=== PATIENT | female | born 1985 | race Caucasian/White ===

== ENCOUNTER 2017-09-19 17:19 | Inpatient (IN) | payer BC ==
[~2017-09-19] VITALS: Ht 157.5 cm; Wt 66.8 kg
[~2017-09-19 17:19] MED LIST: ALDACTONE 25MG25 M1 PO; COLACE 100100 MG/CAP PO; ERY-TAB250 M1 PO; MOTRIN 600600 MG/TAB PO; NORCO 325 MG-51 TAB PO; ORTHO TRI-CYCLE1 TA2 PO; PERCOCET 325 MG1 TA2 PO; PRENATAL1 TA7 PO
[2017-10-31] VITALS (27 sets, daily range): BP systolic 99–127; BP diastolic 52–83; PULSE 56–87; TEMP 97.6–98.4
[2017-10-31 02:22] LABS: BASO % 0.4 % (0.0-2.0); EOS # 0.1 (0.0-0.7); EOS % 0.9 % (0-4.0); GRAN # 6.4 (1.4-6.5); GRAN % 68.3 % (42.2-75.2); LYMPH # 2.1 (1.2-3.4); LYMPH % 22.6 % (20.0-51.0); MEAN CELL VOLUME 86 fl (80.0-100.0); MEAN CORPUSCULAR HEMOGLOBIN 29 pg (27.0-31.0); MEAN CORPUSCULAR HGB CONC 34 g/dl (33.0-37.0); MEAN PLATELET VOLUME 11.5 fl (7.4-10.4); MONO # 0.7 (0.1-0.6); MONO % 7.4 % (1.7-9.3); PLATELET COUNT 187 K/mm3 (130-400); RED BLOOD COUNT 4.11 M/mm3 (4.10-5.30); REDCELL DISTRIBUTION WIDTH-CV 13.6 % (11.5-14.5)
[2017-10-31 02:25] LABS: HEMATOCRIT 35.5 % (37.0-47.0)
[2017-10-31] MEDS ORDERED: PERCOCET 325 MG1 TA2 PO (18:39)
[2017-10-31] MEDS ORDERED: MOTRIN 800800 MG/TAB PO (18:39)
[2017-11-01 04:30] VITALS: BP 108/63; PULSE 78; TEMP 98.2
[2017-11-01 07:05] LABS: HEMATOCRIT 37.6 % (37.0-47.0); HEMOGLOBIN 12.1 g/dl (12.5-16.0)
[2017-11-01 08:28] VITALS: BP 109/66; PULSE 67; TEMP 98.3
[2017-11-01 16:20] VITALS: BP 110/68; PULSE 81; TEMP 97.9
[2017-11-01 20:45] VITALS: BP 111/84; PULSE 74; TEMP 97.9
[2017-11-02 03:45] VITALS: BP 115/78; PULSE 76; TEMP 98.5
[2017-11-02 06:55] VITALS: BP 130/78; PULSE 62; TEMP 97.8
== END 2017-11-02 12:15 | disposition home or self-care (01) | DRG 766 ==
LOC: LDR 10-31 01:30 → OB 10-31 12:00 → LDR 10-31 16:21 → OB 11-02 12:15
PROVIDERS: Obstetrics & Gynecology
PROC: 10D00Z1 Extraction of Products of Conception, Low, Open Approach (ICD-10-PCS; principal; 2017-10-31)
DX: O34.211 Maternal care for low transverse scar from previous cesarean delivery (principal); N85.8 Other specified noninflammatory disorders of uterus; Z3A.39 39 weeks gestation of pregnancy; Z37.0 Single live birth
CPT/HCPCS: J0690; J2270; J2370; J2405; J2590; J7120

== ENCOUNTER → 2019-09-24 | Outpatient (CLI) | payer BC ==
[~2019-09-24] MED LIST changes: +MOTRIN 800800 MG/TAB PO
== END ==
LOC: COL.RAD 11:15
DX: N83.202 Unspecified ovarian cyst, left side (principal)

== ENCOUNTER 2021-11-07 08:41 | Inpatient (IN) | payer BC ==
[~2021-11-07] VITALS: Ht 157.5 cm; Wt 64.5 kg
[2021-11-08] VITALS (16 sets, daily range): BP systolic 92–133; BP diastolic 52–94; PULSE 53–77; TEMP 97.5–98.2
[2021-11-08 10:49] LABS: BASO # 0.1 K/mm3 (0.0-0.2); BASO % 0.5 % (0.0-2.0); EOS % 0.4 % (0.0-4.0); GRAN # 7.5 K/mm3 (1.4-6.5); GRAN % 72.4 % (42.2-75.2); HEMATOCRIT 33.2 % (37.0-47.0); HEMOGLOBIN 11.2 g/dl (12.5-16.0); LYMPH # 2.1 K/mm3 (1.2-3.4); LYMPH % 19.8 % (20.0-51.0); MEAN CELL VOLUME 86 fl (80.0-100.0); MEAN CORPUSCULAR HEMOGLOBIN 29 pg (27-31); MEAN CORPUSCULAR HGB CONC 34 g/dl (33.0-37.0); MEAN PLATELET VOLUME 11.8 fl (7.4-10.4); MONO # 0.6 K/mm3 (0.1-0.6); MONO % 6.1 % (1.7-9.3); PLATELET COUNT 190 K/mm3 (130-400); RED BLOOD COUNT 3.88 M/mm3 (4.10-5.30); REDCELL DISTRIBUTION WIDTH-CV 14.3 % (11.5-14.5)
--- NOTE | 2021-11-08 17:50 | NUR ---
Pt up to edge of bed. Able to stand but not able to walk at this time. Pericare done. Pad changed. Call light in place and all neccesary items within reach.
[2021-11-09 04:00] VITALS: BP 113/82; PULSE 60; TEMP 97.7
[2021-11-09 08:30] VITALS: BP 119/75; PULSE 61; TEMP 97.5
--- NOTE | 2021-11-09 09:25 | NUR ---
Initial visit attempt; Family resting, Pediatric Physician left card of congratulations for the of their son and information regarding the availability of spiritual care at [facility].
[2021-11-09] MEDS ORDERED: PERCOCET 325 MG1 TA2 PO (10:25)
[2021-11-09] MEDS ORDERED: IBU800 M1 PO (10:25)
[2021-11-09 12:30] VITALS: BP 120/78; PULSE 60; TEMP 98
== END 2021-11-09 14:30 | disposition home or self-care (01) | DRG 788 ==
LOC: OB 11-08 08:41
PROVIDERS: ADMIT Obstetrics & Gynecology
PROC: 10D00Z1 Extraction of Products of Conception, Low, Open Approach (ICD-10-PCS; principal; 2021-11-08)
DX: O34.211 Maternal care for low transverse scar from previous cesarean delivery (principal); Z37.0 Single live birth; O69.81X0 Labor and delivery complicated by cord around neck, without compression, not applicable or unspecified; Z3A.39 39 weeks gestation of pregnancy
CPT/HCPCS: J0690; J1885; J2405; J2590; J7120